=== PATIENT | male | born 1995 | race Caucasian/White ===

== ENCOUNTER 2016-09-04 00:30 | Emergency (ER) | payer SELFPAY ==
[~2016-09-04] VITALS: Ht 185.4 cm; Wt 83.5 kg
[2016-09-04 00:48] VITALS: Ht 185.4 cm; Wt 83.5 kg
== END 2016-09-04 01:43 | disposition left against medical advice (07) ==
LOC: FTE 00:30
DX: Z53.21 Procedure and treatment not carried out due to patient leaving prior to being seen by health care provider (principal)